=== PATIENT | female | born 1950 | race Two or more races ===

== ENCOUNTER 2016-06-06 08:24 | Day surgery (SDC) | payer MEDICARE, OTHER ==
[2016-06-05 10:35] VITALS: BMI 30.8
[2016-06-06] VITALS (15 sets, daily range): BP systolic 104–150; BP diastolic 51–78; PULSE 54–81; RESP 15–20; Ht 121.9 cm; Wt 45.6 kg
[~2016-06-06] VITALS: Ht 121.9 cm; Wt 45.6 kg
[~2016-06-06 08:24] MED LIST: ALEN70TA30 PO; ALPR0.257 PO; AMLO-145 PO; ASPI81TA3 PO; BALANCED SALT SOLN 15 ML OPH IRRIG ONE; CEPH500C PO; CHOL500020 PO; CLOP75TA27 PO; INSULIN LISPRO; LANT3I SC; LIDOCAINE 3.5% GEL TUBE OPER SCH; LOSA50TA6 PO; SIMV5TAB50 PO; ZOC10 PO
[2016-06-06] MEDS ORDERED: LOSA100T7 PO (09:23)
[2016-06-06] MEDS ORDERED: METO-448 PO (09:31)
[2016-06-06] MEDS ORDERED: FEBU40TA PO (09:32)
[2016-06-06] MEDS ORDERED: FURO20TA3 PO (09:32)
[2016-06-06] MEDS: TETRACAINE 0.5% 15 ML OPH BOTH EYES SCH ×2 (09:40→11:39)
[2016-06-06] MEDS: DICLOFENAC 0.1% 2.5 ML OPH RIGHT EYE SCH ×2 (09:40→11:40)
[2016-06-06] MEDS: MOXIFLOXACIN 0.5% 3 ML OPH RIGHT EYE SCH ×2 (09:40→11:40)
[2016-06-06] MEDS ORDERED: LIDOCAINE 2%/EPI 30 ML INJ ONE (11:02)
[2016-06-06] MEDS ORDERED: TOBRAMYCIN/DEXAMETH 3.5 GM OPH OINT ONE (11:02)
[2016-06-06] MEDS ORDERED: MIDAZOLAM 1 MG/ML 2 ML INJ ONE (11:17)
[2016-06-06] MEDS ORDERED: PROPOFOL 40 ML ONE (11:17)
[2016-06-06] MEDS ORDERED: CEFAZOLIN 1 GM INJ ONE ×2 (11:26)
[2016-06-06] MEDS ORDERED: PHENYLephrine (100 MCG/ML) 5ML SYG ONE (11:58)
[2016-06-06] MEDS ORDERED: NA HYALURONATE/CHONDROITIN 0.5 ML SYG RIGHT EYE ONE (12:03)
[2016-06-06] MEDS ORDERED: POLYMYXIN/BACITRACIN 1L IRRIG ONE (12:18)
[2016-06-06] MEDS ORDERED: POLYMYXIN/BACITRACIN 1L IRRIG IRR ONE (12:21)
[2016-06-06] MEDS ORDERED: MEPERIDINE 25 MG INJ IV PRN (12:30)
[2016-06-06] MEDS ORDERED: HYDROmorphONE (0.2 MG/ML) 10ML SYG IV PRN (12:30)
[2016-06-06] MEDS ORDERED: ONDANSETRON 4 MG INJ IV PRN (12:30)
--- NOTE | 2016-06-06 19:22 | OPR ---
DATE OF OPERATION: SURGEON: Lisandra Hammond DO ANESTHESIOLOGIST: Cheikh Colon M.D. PREOPERATIVE DIAGNOSIS: Secondary closed-angle neovascular glaucoma, late stage , right eye. POSTOPERATIVE DIAGNOSIS: Secondary closed-angle neovascular glaucoma, late stage, right eye. PLANNED PROCEDURE: Implantation of shunt, Ahmed valve, right eye. PROCEDURE PERFORMED: Implantation of shunt, Ahmed valve, right eye. ANESTHESIA: MAC. CONSENT: Patient was given all possible options for treatment of her condition , but she was already on multiple drops and also on Diamox medication. Patient understood that it was the best choice for her to have Ahmed valve implantation done. Patient was given all possible complications, which included, but not limited to, infection, bleeding, hypotony or blockage of the shunt and uncontrollable elevated pressure, retinal detachment, cornea opacification, loss of the eye as an organ. The patient understood and decided to have surgery done. She signed and consent can be found in her chart. Explanation was given in [place]. DESCRIPTION OF PROCEDURE: The patient was taken to operation room in stable condition, placed on table in supine position. Her right eye was prepped for surgery in routine standard technique. Then 2% lidocaine with epinephrine, preservative-free, injected subconjunctivally in the superotemporal area. Then holding suture a 4.0 Vicryl suture placed on temporal limbus to open the superotemporal quadrant. Then perimetry was done in this area and hemostat performed with handpiece cautery. Then the Ahmed valve was primed with balanced salt solution successfully and a pocket was created with Cary scissors in superotemporal area, where the plate of the shunt was placed. The superior border of the plate was placed 8 mm away from limbus.The plate was attached to the sclera with two 10-0 nylon suture. Then 3 mm away from limbus one incision was done about 50 % of sclera thickness with eek knife. This was followed by insertion of 22-gauge needle into the anterior chamber parallel to the iris. Prior to this, a paracentesis was done with a superblade and some Viscoat material was injected into the anterior chamber. Eventually, the tube was cut bevel up and inserted into anterior chamber parallel to iris. Then donor scleral tissue was soaked in antibiotic solution. This was followed by cutting of the excessive tissue and placement of the donor scleral transplant over the shunt. A 10-0 nylon suture used to attach the transplant to the underlying sclera. Eventually, conjunctiva covered the Ahmed valve plate and donor sclera and reattaced to the limbus with uninterrupted 8-0 Vicryl suture. Eventually, TobraDex ointment was instilled into conjunctival sac and patch was placed over closed eyelids. The patient transferred to recovery room in stable condition. Dictated By: LISANDRA PETERSON Conf#: [id number] DID#: [id number]
== END 2016-06-06 15:45 | disposition home or self-care (01) ==
LOC: SDS 08:24
PROVIDERS: ATTEND Ophthalmology
DX: H40.20X0 Unspecified primary angle-closure glaucoma, stage unspecified (principal); I10 Essential (primary) hypertension; E11.9 Type 2 diabetes mellitus without complications
CPT/HCPCS: 66180; 82962; J0690; J2250; J2370; J2405